=== PATIENT | female | born 1940 | race Two or more races ===

== ENCOUNTER 2018-07-28 13:06 | Outpatient (CLI) | payer OTHER ==
[~2018-07-28 13:06] MED LIST: ATENOLOL25 MG; SYNTHROID75 MCG; TAMBOCOR50 MG
== END 2018-07-28 13:14 | disposition home or self-care (01) ==
LOC: MRI 13:06
DX: M25.551 Pain in right hip (principal); Z48.89 Encounter for other specified surgical aftercare
CPT/HCPCS: 73718

== ENCOUNTER 2018-09-17 08:50 | Outpatient (CLI) | payer OTHER | END 2018-09-17 09:01 | disposition home or self-care (01) | LOC: RAD 501 08:50 | DX: M54.5 Low back pain (principal); M54.16 Radiculopathy, lumbar region ==

== ENCOUNTER 2019-01-14 09:18 | Outpatient (CLI) | payer OTHER | END 2019-01-14 09:22 | disposition home or self-care (01) | LOC: SONOGRAMA 09:18 | DX: E04.1 Nontoxic single thyroid nodule (principal) ==

== ENCOUNTER 2019-01-21 13:59 | Outpatient (CLI) | payer OTHER | END 2019-01-21 14:03 | disposition home or self-care (01) | LOC: RAD 13:59 | DX: M19.071 Primary osteoarthritis, right ankle and foot (principal); M54.2 Cervicalgia; M54.5 Low back pain; M54.6 Pain in thoracic spine; Z91.81 History of falling; M17.0 Bilateral primary osteoarthritis of knee ==

== ENCOUNTER 2019-01-28 10:56 | Outpatient (CLI) | payer OTHER | END 2019-01-28 11:02 | disposition home or self-care (01) | LOC: NUCLEAR 10:56 | DX: M81.0 Age-related osteoporosis without current pathological fracture (principal) ==

== ENCOUNTER 2019-03-15 13:34 | Outpatient (CLI) | payer OTHER | END 2019-03-15 15:09 | disposition home or self-care (01) | LOC: RAD 13:34 | DX: M54.2 Cervicalgia (principal); M54.6 Pain in thoracic spine ==

== ENCOUNTER 2019-04-26 11:14 | Emergency (ER) | payer OTHER ==
[~2019-04-26] VITALS: Ht 165.1 cm; Wt 63.5 kg
[2019-04-26] MEDS ORDERED: AMIODARONE (12:08)
== END 2019-04-26 13:18 | disposition home or self-care (01) ==
LOC: ER 11:14
DX: I16.0 Hypertensive urgency (principal); I10 Essential (primary) hypertension

== ENCOUNTER 2020-12-12 11:12 | Outpatient (CLI) | payer OTHER ==
[~2020-12-12 11:12] MED LIST changes: +AMIODARONE
== END 2020-12-12 11:14 | disposition home or self-care (01) ==
LOC: TOM 11:12
DX: H65.21 Chronic serous otitis media, right ear (principal)

== ENCOUNTER → 2021-07-18 11:34 | Outpatient (CLI) | payer OTHER | END | disposition home or self-care (01) | LOC: LAB 11:34 | PROVIDERS: ATTEND Internal Medicine Gastroenterology | DX: R10.84 Generalized abdominal pain (principal); K59.00 Constipation, unspecified ==

== ENCOUNTER → 2023-02-18 | Outpatient (CLI) | payer OTHER | END | disposition home or self-care (01) | LOC: TOM 11:19 | PROVIDERS: ATTEND Psychiatry & Neurology Neurology | DX: I62.00 Nontraumatic subdural hemorrhage, unspecified (principal) ==